=== PATIENT | female | born 1990 | race Asian ===

== ENCOUNTER 2018-07-10 00:50 | Inpatient (IN) | payer SELFPAY ==
[~2018-07-10] VITALS: Ht 162 cm; Wt 68.0 kg
[2018-07-10] MEDS ORDERED: OXYTOCIN/0.9 % SODIUM CHLORIDE 1,000 ML IV SCH (00:51)
[2018-07-10] MEDS ORDERED: NALBUPHINE HCL 10 MG/ML AMP IVP PRN (01:00)
[2018-07-10] MEDS ORDERED: TERBUTALINE SULFATE 1 MG/ML VIAL SUBCUT ONE (01:00)
[2018-07-10] MEDS ORDERED: DINOPROSTONE 10 MG SUPP VG ONE (01:00)
[2018-07-10 01:07] VITALS: BP_SYST 116
[2018-07-10 01:30] LABS: BASOPHILS % (AUTO) 0.4 % (0.0-2.0); EOSINOPHILS % (AUTO) 0.5 % (0.0-4.0); HEMATOCRIT 35.3 % (36-48); HEMOGLOBIN 11.8 g/dL (12.0-16.0); LYMPHOCYTES # (AUTO) 1.8 K/uL (1.0-5.5); MEAN CORPUSCULAR HEMOGLOBIN 32 pg (27-31); MEAN CORPUSCULAR HGB CONC 33 % (32-36); MEAN CORPUSCULAR VOLUME 96 fL (79.0-98.0); MONOCYTES # (AUTO) 0.7 K/uL (0.0-1.0); MONOCYTES % (AUTO) 9.2 % (1.7-9.3); NEUTROPHILS # (AUTO) 4.6 K/uL (1.8-7.7); NEUTROPHILS % (AUTO) 63.9 % (40.0-70.0); PLATELET COUNT (AUTO) 191 K/uL (130-430); RED BLOOD CELL COUNT(AUTO) 3.68 MIL/uL (4.2-6.2); RED CELL DISTRIBUTION WIDTH 16.6 % (9.0-15.0); WHITE BLOOD COUNT (AUTO) 7.1 K/uL (4.8-10.8)
[2018-07-10] MEDS: LR 1,000 ML IV SCH ×4 (01:38→22:52)
[2018-07-10] MEDS ORDERED: LR 500 ML IV ONE (21:38)
[2018-07-10] MEDS ORDERED: fentaNYL CITRATE/PF 100 MCG/2 ML AMP ONE (21:39)
[2018-07-10] MEDS ORDERED: ROPIVACAINE 0.2% 100 ML ONE (21:39)
[2018-07-10] MEDS ORDERED: FENT2mCg/mL-ROPIVA0.2%/NS EPID 150 ML EP SCH (21:45)
[2018-07-11] MEDS ORDERED: ROPIVACAINE 0.2% 100 ML ONE (05:38)
[2018-07-11] MEDS ORDERED: OXYTOCIN/0.9 % SODIUM CHLORIDE 1,000 ML IV ONE (08:21)
[2018-07-11] MEDS ORDERED: BISACODYL 10 MG/SUPPOSITORY RC PRN (08:30)
[2018-07-11] MEDS ORDERED: LANOLIN 7 GM OINT. TP PRN (08:30)
[2018-07-11] MEDS ORDERED: ACETAMINOPHEN 325 MG TABLET PO PRN (08:30)
[2018-07-11] MEDS ORDERED: ANUSOL 1 EA SUPP.RECT (PREPARATION H) RC PRN (08:30)
[2018-07-11] MEDS ORDERED: MEASLES,MUMPS&RUBELLA VACC/PF 12500 UNIT/0.5 ML VIAL SUBQ PRN (08:30)
[2018-07-11] MEDS ORDERED: TEMAZEPAM 15 MG CAPSULE PO PRN (08:30)
[2018-07-11] MEDS ORDERED: RHO(D) IMMUNE GLOBULIN/MALTOSE 1500 UNITS/1.3 ML (WINHRO) IM PRN (08:30)
[2018-07-11] MEDS ORDERED: SENNOSIDES/DOCUSATE SODIUM 1 TAB TABLET(SENOKOT-S) PO PRN (08:30)
[2018-07-11 08:47] VITALS: BP_SYST 124
[2018-07-11] MEDS ORDERED: LR 1,000 ML IV.SOLN IV ONE (08:50)
[2018-07-11] MEDS ORDERED: BUPIVACAINE /PF 0.75% 10 ML VIAL INJ ONE (08:50)
[2018-07-11] MEDS ORDERED: CEFAZOLIN 2 GM IVPB PREMIX 50 ML IV ONE (08:50)
[2018-07-11] MEDS ORDERED: MORPHINE SULFATE 10MG/10ML PF AMP ONE (08:50)
[2018-07-11] MEDS ORDERED: NS IRRIG SOLN 1000 ML IR ONE (08:50)
[2018-07-11] MEDS ORDERED: METHYLERGONOVINE MALEATE 0.2 MG/ML AMP ONE (08:50)
[2018-07-11] MEDS: LR 1,000 ML IV SCH (21:21)
[2018-07-11] MEDS: IBUPROFEN 600 MG TABLET PO SCH (23:52)
[2018-07-12] MEDS: LR 1,000 ML IV SCH ×2 (00:21→05:58)
[2018-07-12] MEDS: IBUPROFEN 600 MG TABLET PO SCH ×3 (05:55→18:11)
[2018-07-12 06:06] LABS: BASOPHILS % (AUTO) 0.3 % (0.0-2.0); EOSINOPHILS % (AUTO) 0.1 % (0.0-4.0); HEMATOCRIT 31.9 % (36-48); HEMOGLOBIN 10.1 g/dL (12.0-16.0); LYMPHOCYTES # (AUTO) 2.1 K/uL (1.0-5.5); LYMPHOCYTES % (AUTO) 20.4 % (20.5-51.5); MEAN CORPUSCULAR HEMOGLOBIN 30 pg (27-31); MEAN CORPUSCULAR HGB CONC 32 % (32-36); MEAN CORPUSCULAR VOLUME 95 fL (79.0-98.0); MONOCYTES # (AUTO) 0.8 K/uL (0.0-1.0); MONOCYTES % (AUTO) 7.7 % (1.7-9.3); NEUTROPHILS # (AUTO) 7.6 K/uL (1.8-7.7); NEUTROPHILS % (AUTO) 71.5 % (40.0-70.0); PLATELET COUNT (AUTO) 162 K/uL (130-430); RED BLOOD CELL COUNT(AUTO) 3.36 MIL/uL (4.2-6.2); WHITE BLOOD COUNT (AUTO) 10.4 K/uL (4.8-10.8)
[2018-07-12] MEDS: HYDROcodone/ACETAMIN 5-325 MG TAB (NORCO/ VICODIN) PO PRN ×2 (08:15→16:18)
[2018-07-12] MEDS: SIMETHICONE 80 MG TAB.CHEW PO PRN ×2 (12:32→16:18)
[2018-07-12] MEDS: DOCUSATE SODIUM 100 MG CAPSULE PO PRN (16:17)
[2018-07-13] MEDS: IBUPROFEN 600 MG TABLET PO SCH ×2 (00:03→12:08)
[2018-07-13] MEDS: HYDROcodone/ACETAMIN 5-325 MG TAB (NORCO/ VICODIN) PO PRN ×2 (00:03→05:08)
[2018-07-13] MEDS: SIMETHICONE 80 MG TAB.CHEW PO PRN (00:04)
[2018-07-13] MEDS: DOCUSATE SODIUM 100 MG CAPSULE PO PRN (00:04)
== END 2018-07-13 15:25 | disposition home or self-care (01) | DRG 765 ==
LOC: SPU 00:50
PROVIDERS: ADMIT Obstetrics & Gynecology; ATTEND Obstetrics & Gynecology
PROC: 10D00Z1 Extraction of Products of Conception, Low, Open Approach (ICD-10-PCS; principal; 2018-07-11 07:30)
DX: O62.2 Other uterine inertia (principal); O98.42 Viral hepatitis complicating childbirth; B19.10 Unspecified viral hepatitis B without hepatic coma; Z37.0 Single live birth; O48.0 Post-term pregnancy; O76 Abnormality in fetal heart rate and rhythm complicating labor and delivery
CPT/HCPCS: 36415; 85025; 86886; 86900; 86901; 94760; J0690; J2210; J2274; J2300; J2590; J2795; J3010; J3490; J7120